=== PATIENT | female | born 1980 | race Asian ===

== ENCOUNTER 2017-01-31 22:10 | Emergency (ER) | payer OTHER ==
[~2017-01-31] VITALS: Ht 160 cm; Wt 45.4 kg
--- NOTE | 2017-01-31 22:23 | Emergency Room Report ---
History of Present Illness General Chief Complaint: Behavioral Complaint Source: Patient, EMS Present Illness Allergies: Coded Allergies: No Known Allergies (Unverified , 01/31/17) Patient History Past Medical History: see triage record, old chart reviewed Family History: none Social History: tobacco use Immunizations: other Reviewed Nursing Documentation: PMH: Agreed, PSxH: Agreed Nursing Documentation-PMH History Of Psychiatric Problem: Yes Medical Decision Making Diagnostic Impression: Primary Impression: Psychosis Qualified Codes: F29 - Unspecified psychosis not due to a substance or known physiological condition Additional Impression: Anxiety ER Course She present with anxiety and her probably some psychotic feature. She does have a history bipolar. Not being treated. No evidence of drug abuse other than marijuana. She is much better after Ativan. Now much calmer. No criteria for 5150. She's not suicidal or homicidal. Status: improved Disposition: HOME, SELF-CARE Condition: Stable Scripts Lorazepam* (ATIVAN*) 1 Mg Tablet 1 MG ORAL THREE TIMES A DAY, #30 TAB Prov: RADHA STEELE M.D. 02/01/17 Additional Instructions: Followup with mental health within a week. Return if symptom worsen. RADHA STEELE M.D. Jan 31, 2017 22:23
[2017-01-31] MEDS ORDERED: LORazepam 1mg tab ORAL ONE (22:45)
[2017-01-31 22:57] LABS: APPEARANCE,URINE CLEAR; KETONES,URINE 4+ (NEGATIVE); LEUKOCYTE ESTERASE ,URINE 1+ (NEGATIVE); NITRITE,URINE NEGATIVE (NEGATIVE); PH,URINE 5 (4.5-8.0); PROTEIN,URINE 1+ (NEGATIVE); UROBILINOGEN,URINE 1 MG/DL (0.0-1.0)
[2017-01-31 23:23] LABS: SQUAMOUS EPITHELIAL CELL,UR MODERATE /LPF (NONE/OCC); WBC,URINE 0-2 /HPF (0 - 0)
[2017-02-01] MEDS ORDERED: ATIVAN1 MG ORAL (00:25)
[2017-02-01 00:45] VITALS: BP 98/60
[2017-02-01] MEDS ORDERED: Bacitracin Oint UD TOPIC ONE (00:47)
[2017-02-01 00:50] VITALS: BP 98/60
== END 2017-02-01 00:50 | disposition home or self-care (01) ==
LOC: EDBD 22:10 → EMR 22:25 → EDSEX 22:25 → EMR 02-01 00:50
DX: F29 Unspecified psychosis not due to a substance or known physiological condition (principal); F41.9 Anxiety disorder, unspecified; F31.9 Bipolar disorder, unspecified
CPT/HCPCS: 80300; 81003; 81025; 99283